=== PATIENT | female | born 1980 | race Hispanic/Latino ===

== ENCOUNTER 2017-08-29 13:12 | Inpatient (IN) | payer OTHER ==
[~2017-08-29] VITALS: Ht 160 cm; Wt 69.1 kg
[2017-08-29] MEDS ORDERED: HYDROMORPHONE 1MG/1ML INJ IV STA (13:27)
[2017-08-29] MEDS ORDERED: ONDANSETRON HCL INJ 2 MG/ML VIAL IV STA (13:27)
[2017-08-29] MEDS ORDERED: SODIUM CHLORIDE 0.9% 1000ML 1,000 ML IV STA (13:27)
[2017-08-29 14:06] LABS: BASOPHILS % 0.1 % (0.0-1.0); HEMOGLOBIN 9.8 g/dL (12.0-16.0); LYMPHOCYTES # (AUTO) 1.7 (1.0-3.2); LYMPHOCYTES % 7.9 % (18.0-39.1); MEAN CORPUSCULAR HEMOGLOBIN 22.4 pg (28-32); MEAN CORPUSCULAR HGB CONC 29.7 g/dL (31-35); MEAN CORPUSCULAR VOLUME 75.3 fL (81-99); MONOCYTES % 4.7 % (4.4-11.3); NEUTROPHILS # (AUTO) 18.9 (2.1-6.9); NEUTROPHILS % 86.7 % (38.7-80.0); PLATELET COUNT 579 x10e3/uL (140-360); RED BLOOD COUNT 4.38 x10e6/uL (3.6-5.1)
[2017-08-29 14:20] LABS: BILIRUBIN,URINE 1+ (NEGATIVE); CLARITY,URINE SL CLOUDY (CLEAR); COLOR,URINE YELLOW (YELLOW); KETONES,URINE NEGATIVE (NEGATIVE); LEUKOCYTE ESTERASE ,URINE 2+ (NEGATIVE); NITRITE,URINE NEGATIVE (NEGATIVE); PROTEIN,URINE DIPSTICK TRACE (NEGATIVE); URINE UROBILINOGEN 0.2 mg/dL (0.2 - 1)
[2017-08-29 14:23] LABS: PREGNANCY TEST, URINE NEGATIVE (NEGATIVE)
[2017-08-29 14:23] LABS: ALANINE AMINOTRANSFERASE 38 IU/L (0-55); ALBUMIN 4.2 g/dL (3.5-5.0); ALBUMIN/GLOBULIN RATIO 0.9 (0.8-2.0); ALKALINE PHOSPHATASE 76 IU/L (40-150); AMYLASE 50 U/L (25-125); ANION GAP 14.4 mmol/L (8-16); BLOOD UREA NITROGEN 13 mg/dL (7-26); BUN/CREATININE RATIO 16 (6-25); CALCIUM 8.9 mg/dL (8.4-10.2); CARBON DIOXIDE 22 mmol/L (22-29); CHLORIDE 103 mmol/L (98-107); CREATININE, SERUM 0.82 mg/dL (0.57-1.11); EST GLOMERULAR FILTRATION RATE > 60 ML/MIN (60-); GLUCOSE 144 mg/dL (74-118); LIPASE 21 U/L (8-78); MAGNESIUM 1.5 MG/DL (1.3-2.1); POTASSIUM 3.4 mmol/L (3.5-5.1); SODIUM 136 mmol/L (136-145)
[2017-08-29 14:44] LABS: BACTERIA,URINE MODERATE /HPF; EPITHELIAL CELLS,URINE MODERATE /LPF; RBC,URINE 0-5 /HPF (0-5)
--- NOTE | 2017-08-29 15:29 | Diagnostic Imaging Report ---
PROCEDURE:US GALLBLADDER COMPARISON:None. INDICATIONS:SEVERE ABDOMINAL PAIN TECHNIQUE: Pierre-scale and color doppler transverse and longitudinal images of the right upper quadrant of the abdomen were obtained. FINDINGS: Limited exam due to patient's severe pain Liver: 12.6 cm in right mid-clavicular line. Normal echogenicity. No masses. Main portal vein: 0.8 cm, hepatopedal flow Gallbladder: No stones, sludge, wall thickening, or pericholecystic fluid. Common Bile Duct: 0.3 cm Sonographic Burris's sign: Negative Right kidney: 8.3 cm. Normal echogenicity. No solid masses or hydronephrosis. Pancreas: The visualized portions are unremarkable. Inferior vena cava: Patent Aorta: Within normal limits Ascites: None in the right upper quadrant of the abdomen. Large septated anechoic structure noted in the lower midline pelvic area, measuring approximately 13.4 x 8.6 x 12.6 cm. CONCLUSION: 1. No sonographic evidence of cholelithiasis or cholecystitis. 2. Large septated anechoic structure in the lower midline pelvic area. Please refer to CT abdomen and pelvis performed same date for further detail. Raimundo Nova M.D. Dictated by: Raimundo Nova M.D. on 08/29/2017 at 15:38 Electronically approved by: Raimundo Nova M.D. on 08/29/2017 at 15:38
[2017-08-29] MEDS ORDERED: HYDROMORPHONE 2MG/ML INJ IV ONE ×2 (15:30→16:45)
--- NOTE | 2017-08-29 15:46 | Diagnostic Imaging Report ---
This report includes an Addendum and supersedes previous reports for this exam. PROCEDURE: CT ABDOMEN AND PELVIS WITH CONTRAST TECHNIQUE: The abdomen and pelvis were scanned utilizing a multidetector helical scanner from the diaphragm to the lesser trochanter after the IV administration of 100 cc of Isovue 370 and the oral administration of water. Coronal and sagittal multiplanar reformations were obtained. COMPARISON: None. INDICATIONS: RIGHT LOWER QUADRANT PAIN FINDINGS: LOWER THORAX: Bilateral lower lobe dependent atelectasis. HEPATOBILIARY: No focal hepatic lesions. No biliary ductal dilatation. Gallbladder is unremarkable. SPLEEN: No splenomegaly. PANCREAS: No focal masses or ductal dilatation. ADRENALS: No adrenal nodules. KIDNEYS/URETERS: No hydronephrosis, stones, or solid mass lesions. PELVIC ORGANS/BLADDER: Bladder is decompressed, but grossly unremarkable. There is an approximately 18.3 x 14.0 x 9.4 cm cystic lesion occupying the midline pelvis, with at least one septation and 2 locules (sagittal image 54 and series 2, image 58). No definite septation enhancement or mural nodules are identified. No fat component or calcification A normal left ovary is not identified. The right ovary is mildly prominent, measuring approximately 4.8 x 3.4 cm and contains a 1.9 x 2.3 cm fluid density structure, likely representing a dominant follicle or follicular cyst. PERITONEUM / RETROPERITONEUM: Small amount of fluid in the anterior peritoneum bilaterally (for example series 2, image 57), which does not measure simple fluid. A small amount of fluid tracks up into the right lower quadrant (for example, coronal image 37-41), surrounding loops of distal ileum and the appendix LYMPH NODES: No lymphadenopathy. VESSELS: Unremarkable. GI TRACT: No bowel dilation or evidence of obstruction. Appendix is identified (series 2, image 52) and is normal in caliber, without abnormal enhancement. BONES AND SOFT TISSUES: No aggressive lytic lesion. Soft tissues are grossly unremarkable. IMPRESSION: 1. Large cystic lesion with one septation and at least 2 locules in the pelvic midline, measuring 18.3 cm in greatest diameter. A normal left ovary is not identified. Findings highly suspicious for cystic ovarian neoplasm. No fat component or calcification to suggest a dermoid. Ruptured hemorrhagic cyst is a consideration given the small amount of fluid with slightly higher than simple attenuation in the pelvis. 2. Mildly prominent right ovary. Recommend transvaginal ultrasound with Doppler for further evaluation and to exclude torsion, given the clinical complaint of right lower quadrant pain. 3. No definite CT evidence of appendicitis. Raimundo Nova M.D. Dictated by: Raimundo Nova M.D. on 08/29/2017 at 15:55 Electronically approved by: Raimundo Nova M.D. on 08/29/2017 at 15:55 ADDENDUM: Moderate wall thickening involving multiple loops of jejunum (series 2, images 28-39), without intraluminal mass. A small amount of fluid is noted adjacent to jejunal loops in the left lower abdomen (series 2, image 37). No dilation or obstruction. The ileum is unremarkable. Findings suggestive of jejunal enteritis. Raimundo Nova M.D. Dictated by: Raimundo Nova M.D. on 08/29/2017 at 17:45 Electronically approved by: Raimundo Nova M.D. on 08/29/2017 at 17:45
--- NOTE | 2017-08-29 18:29 | Diagnostic Imaging Report ---
PROCEDURE:PELVIC DOPPLER US COMPARISON:[facility], CT, CT ABDOMEN/PELVIS W, 08/29/2017, 14:44. INDICATIONS:Abnormal Ovaries, Eval for Torsion CONCLUSION: Please refer to transvaginal ultrasound performed at the same date and time for full dictated report. Raimundo Nova M.D. Dictated by: Raimundo Nova M.D. on 08/29/2017 at 18:39 Electronically approved by: Raimundo Nova M.D. on 08/29/2017 at 18:39
--- NOTE | 2017-08-29 18:29 | Diagnostic Imaging Report ---
PROCEDURE:TRANSVAGINAL ULTRASOUND COMPARISON:[facility], CT, CT ABDOMEN/PELVIS W, 08/29/2017, 14:44. INDICATIONS:Abnormal Ovaries, Eval for Torsion TECHNIQUE: Grayscale transverse and sagittal transabdominal and transvaginal images were obtained of the pelvis. Transvaginal imaging was medically necessary to better evaluate endometrium.. FINDINGS: UTERUS: 10.5 x 4.7 x 4.3 cm. 1.8 x 1.5 x 2.0 cm subserosal fibroid in the fundus. Nabothian cysts in the cervix.. ENDOMETRIUM: 0.8 cm. Homogeneous echogenicity, without focal thickening. RIGHT OVARY: 4.4 x 2.5 x 3.4 cm. There is a 2.3 x 1.9 x 2.1 cm cystic, anechoic lesion in the right ovary, likely representing a dominant follicle. Normal arterial and venous flow is documented. LEFT OVARY: 6.2 x 2.6 x 4.1 cm. A 3.6 x 2.4 x 3.3 cm hypoechoic lesion is noted in the left ovary. Normal arterial and venous flow is documented. There is small amount of free fluid within the pelvis. 13.5 x 7.8 x 14.0 cm hypoechoic cystic structure in the midpelvis with at least 2 locules. No internal vascularity. CONCLUSION: 1. Although the left ovary is mildly increased in size, this is felt to be secondary to presence of a hypoechoic cystic lesion, which may represent a hemorrhagic cyst. Normal arterial and venous flow is documented, with low likelihood of torsion. 2. Normal arterial and venous flow is also seen in the right ovary, with low likelihood of torsion. A 2.3 cm cystic, anechoic lesion in the right ovary likely represents a dominant follicle. 3. Indeterminate 14.0 cm cystic structure with 2 locules occupying the midpelvis. A cystic ovarian neoplasm is still a consideration. 4. 2.8 cm subserosal fibroid in the uterus. Raimundo Nova M.D. Dictated by: Raimundo Nova M.D. on 08/29/2017 at 17:03 Electronically approved by: Raimundo Nova M.D. on 08/29/2017 at 18:38
[2017-08-29 18:33] LABS: BASOPHILS % 0.1 % (0.0-1.0); HEMATOCRIT 28.2 % (34.2-44.1); HEMOGLOBIN 8.6 g/dL (12.0-16.0); LYMPHOCYTES # (AUTO) 0.7 (1.0-3.2); LYMPHOCYTES % 2.6 % (18.0-39.1); MEAN CORPUSCULAR HEMOGLOBIN 22.9 pg (28-32); MEAN CORPUSCULAR HGB CONC 30.5 g/dL (31-35); MEAN CORPUSCULAR VOLUME 75.2 fL (81-99); MONOCYTES # (AUTO) 0.7 (0.2-0.8); MONOCYTES % 2.9 % (4.4-11.3); NEUTROPHILS # (AUTO) 23.3 (2.1-6.9); NEUTROPHILS % 93.7 % (38.7-80.0); PLATELET COUNT 446 x10e3/uL (140-360); RED BLOOD COUNT 3.75 x10e6/uL (3.6-5.1); RED CELL DISTRIBUTION WIDTH 16.8 % (11.7-14.4)
[2017-08-29] MEDS: SODIUM CHLORIDE 0.9% 1000ML 1,000 ML IV SCH (19:33)
[2017-08-29] MEDS: PIPER-TAZ 3.375 GM 50 ML IV SCH (19:33)
[2017-08-29] MEDS ORDERED: PIPER-TAZ 3.375 GM/50 ML BAG IV SCH (22:00)
[2017-08-29] MEDS: HYDROMORPHONE 2MG/ML INJ IV PRN (22:05)
--- OUTSIDE RECORDS SUMMARY | 2017-08-29 22:06 | XMS REPORT ---
Author [facility] Address Unknown Phone Unavailable Care Team Providers Care Hog Ribber Name Role Phone KYLE VACA Unavailable Unavailable Problems This patient has no known problems. Allergies, Adverse Reactions, Alerts This patient has no known allergies or adverse reactions. Medications This patient has no known medications. Results Test Description Test Time Test Comments Text Results Atomic Results Result Comments CT ABDOMEN/PELVIS W [place] [address] Patient Name: EM LANG MR #: [id number] : 1980 Age/Sex: 37/F Req #: [id number] Adm Physician: Ordered by: ADÁN RICHTER Report #: [id number] Location: ER Room/Bed: Procedure: [id number] CT/CT ABDOMEN/PELVIS W Exam Date: 08/29/17 Exam Time: 1448 REPORT STATUS: Signed This report includes an Addendum and supersedes previous reports for this exam. PROCEDURE: CT ABDOMEN AND PELVIS WITH CONTRAST TECHNIQUE: The abdomen and pelvis were scanned utilizing a multidetector helical scanner from the diaphragm to the lesser trochanter after the IV administration of 100 cc of Isovue 370 and the oral administration of water. Coronal and sagittal multiplanar reformations were obtained. COMPARISON: None. INDICATIONS: RIGHT LOWER QUADRANT PAIN FINDINGS: LOWER THORAX: Bilateral lower lobe dependent atelectasis. HEPATOBILIARY: No focal hepatic lesions. No biliary ductal dilatation. Gallbladder is unremarkable. SPLEEN: No splenomegaly. PANCREAS: No focal masses or ductal dilatation. ADRENALS: No adrenal nodules. KIDNEYS/URETERS: No hydronephrosis, stones , or solid mass lesions. PELVIC ORGANS/BLADDER: Bladder is decompressed, but grossly unremarkable. There is an approximately 18.3 x 14.0 x 9.4 cm cystic lesion occupying the midline pelvis, with at least one septation and 2 locules (sagittal image 54 and series 2, image 58). No definite septation enhancement or mural nodules are identified. No fat component or calcification A normal left ovary is not identified. The right ovary is mildly prominent, measuring approximately 4.8 x 3.4 cm and contains a 1.9 x 2.3 cm fluid density structure, likely representing a dominant follicle or follicular cyst. PERITONEUM / RETROPERITONEUM: Small amount of fluid in the anterior peritoneum bilaterally (for example series 2, image 57), which does not measure simple fluid. A small amount of fluid tracks up into the right lower quadrant (for example, coronal image 37-41), surrounding loops of distal ileum and the appendix LYMPH NODES: No lymphadenopathy. VESSELS : Unremarkable. GI TRACT: No bowel dilation or evidence of obstruction. Appendix is identified (series 2, image 52) and is normal in caliber, without abnormal enhancement. BONES AND SOFT TISSUES: No aggressive lytic lesion. Soft tissues are grossly unremarkable. IMPRESSION: 1. Large cystic lesion with one septation and at least 2 locules in the pelvic midline, measuring 18.3 cm in greatest diameter. A normal left ovary is not identified. Findings highly suspicious for cystic ovarian neoplasm. No fat component or calcification to suggest a dermoid. Ruptured hemorrhagic cyst is a consideration given the small amount of fluid with slightly higher than simple attenuation in the pelvis. 2. Mildly prominent right ovary. Recommend transvaginal ultrasound with Doppler for further evaluation and to exclude torsion, given the clinical complaint of right lower quadrant pain. 3. No definite CT evidence of appendicitis. Live Nova M.D. Dictated by: Live Nova M.D. on 08/29/2017 at 15:55 Electronically approved by: Live Nova M.D. on 08/29/2017 at 15 :55 ADDENDUM: Moderate wall thickening involving multiple loops of jejunum (series 2, images 28-39), without intraluminal mass. A small amount of fluid is noted adjacent to jejunal loops in the left lower abdomen (series 2, image 37). No dilation or obstruction. The ileum is unremarkable. Findings suggestive of jejunal enteritis. Live Nova M.D. Dictated by: Live Nova M.D. on 08/29/2017 at 17:45 Electronically approved by: Live Nova M.D. on 08/29/2017 at 17 :45 Dictated By: LIVE NOVA MD 44 Transcribed By: GUI on 08/29/171744 COPY TO: ADÁN RICHTER US GALLBLADDER [place] [address] Patient Name: EM LANG MR #: [id number] : 1980 Age/Sex: 37/F Req #: [id number] Adm Physician: Ordered by: ADÁN RICHTER Report #: [id number] Location: ER Room/Bed: Procedure: [id number] US/US GALLBLADDER Exam Date: Exam Time: REPORT STATUS: Signed PROCEDURE: US GALLBLADDER COMPARISON: None. INDICATIONS: SEVERE ABDOMINAL PAIN TECHNIQUE: Pierre-scale and color doppler transverse and longitudinal images of the right upper quadrant of the abdomen were obtained. FINDINGS: Limited exam due to patient's severe pain Liver: 12.6 cm in right mid-clavicular line. Normal echogenicity. No masses. Main portal vein: 0.8 cm, hepatopedal flow Gallbladder: No stones, sludge, wall thickening, or pericholecystic fluid. Common Bile Duct: 0.3 cm Sonographic Burris's sign: Negative Right kidney: 8.3 cm. Normal echogenicity. No solid masses or hydronephrosis. Pancreas: The visualized portions are unremarkable. Inferior vena cava: Patent Aorta: Within normal limits Ascites: None in the right upper quadrant of the abdomen. Large septated anechoic structure noted in the lower midline pelvic area, measuring approximately 13.4 x 8.6 x 12.6 cm. CONCLUSION: 1. No sonographic evidence of cholelithiasis or cholecystitis. 2. Large septated anechoic structure in the lower midline pelvic area. Please refer to CT abdomen and pelvis performed same date for further detail. Live Nova M.D. Dictated by: Live Nova M.D. on 08/29/2017 at 15:38 Electronically approved by: Live Nova M.D. on 2017 at 15:38 Dictated By: LIVE NOVA MD 1538 Transcribed By: GUI on 1538 COPY TO: ADÁN RICHTER US TRANSVAGINAL [place] [address] Patient Name: EM LANG MR #: [id number] : 1980 Age/Sex: 37/F Req #: [id number] Adm Physician: Ordered by: ADÁN RICHTER Report #: [id number] Location: ER Room/Bed: Procedure: [id number] US/US TRANSVAGINAL Exam Date: Exam Time: REPORT STATUS: Signed PROCEDURE: TRANSVAGINAL ULTRASOUND COMPARISON: [facility], CT, CT ABDOMEN/PELVIS W, 08/29/2017, 14:44. INDICATIONS: Abnormal Ovaries, Eval for Torsion TECHNIQUE: Grayscale transverse and sagittal transabdominal and transvaginal images were obtained of the pelvis. Transvaginal imaging was medically necessary to better evaluate endometrium.. FINDINGS: UTERUS: 10.5 x 4.7 x 4.3 cm. 1.8 x 1.5 x 2.0 cm subserosal fibroid in the fundus. Nabothian cysts in the cervix.. ENDOMETRIUM: 0.8 cm. Homogeneous echogenicity, without focal thickening. RIGHT OVARY: 4.4 x 2.5 x 3.4 cm. There is a 2.3 x 1.9 x 2.1 cm cystic, anechoic lesion in the right ovary, likely representing a dominant follicle. Normal arterial and venous flow is documented. LEFT OVARY: 6.2 x 2.6 x 4.1 cm. A 3.6 x 2.4 x 3.3 cm hypoechoic lesion is noted in the left ovary. Normal arterial and venous flow is documented. There is small amount of free fluid within the pelvis. 13.5 x 7.8 x 14.0 cm hypoechoic cystic structure in the midpelvis with at least 2 locules. No internal vascularity. CONCLUSION: 1. Although the left ovary is mildly increased in size, this is felt to be secondary to presence of a hypoechoic cystic lesion, which may represent a hemorrhagic cyst. Normal arterial and venous flow is documented, with low likelihood of torsion. 2. Normal arterial and venous flow is also seen in the right ovary, with low likelihood of torsion. A 2.3 cm cystic, anechoic lesion in the right ovary likely represents a dominant follicle. 3. Indeterminate 14.0 cm cystic structure with 2 locules occupying the midpelvis. A cystic ovarian neoplasm is still a consideration. 4. 2.8 cm subserosal fibroid in the uterus. Live Nova M.D. Dictated by: Live Nova M.D. on 08/29/2017 at 17:03 Electronically approved by: Live Nova M.D. on 2017 at 18:38 Dictated By: LIVE NOVA MD 1838 Transcribed By: INFCE on 1837 COPY TO: ADÁN RICHTER US PELVIC DOPPLER LTD [place] [address] Patient Name: EM LANG MR #: [id number] : 1980 Age/Sex: 37/F Req #: [id number] Adm Physician: Ordered by: ADÁN RICHTER Report #: [id number] Location: ER Room/Bed: Procedure: [id number] US/US PELVIC DOPPLER LTD Exam Date: Exam Time: REPORT STATUS: Signed PROCEDURE: PELVIC DOPPLER US COMPARISON: [facility], CT, CT ABDOMEN/PELVIS W, 2017, 14:44. INDICATIONS: Abnormal Ovaries, Eval for Torsion CONCLUSION: Please refer to transvaginal ultrasound performed at the same date and time for full dictated report. Live Nova M.D. Dictated by: Live Nova M.D. on 08/29/2017 at 18:39 Electronically approved by: Live Nova M.D. on 08/29/2017 at 18:39 Dictated By: LIVE NOVA MD 38 Transcribed By: GUI on 08/29/171838 COPY TO: ADÁN RICHTER
[2017-08-29 22:17] VITALS: BP 124/71
[2017-08-29] MEDS ORDERED: SODIUM CHLORIDE 0.9% 50ML 50 ML ONE (22:28)
[2017-08-29] MEDS ORDERED: IOPAMIDOL 370 MG/ML 200 ML INFUS..BTL INJ ONE (22:28)
[2017-08-29 22:55] VITALS: BP 124/71
[2017-08-30] VITALS (7 sets, daily range): BP systolic 95–117; BP diastolic 63–71
[2017-08-30] MEDS: PIPER-TAZ 3.375 GM 50 ML IV SCH ×3 (01:17→17:31)
[2017-08-30] MEDS: ONDANSETRON HCL INJ 2 MG/ML VIAL IV PRN ×4 (02:45→16:40)
[2017-08-30] MEDS: HYDROMORPHONE 2MG/ML INJ IV PRN ×4 (02:45→16:40)
[2017-08-30] MEDS: SODIUM CHLORIDE 0.9% 1000ML 1,000 ML IV SCH ×2 (02:46→18:35)
[2017-08-30 11:18] LABS: % IRON SATURATION 4 % (15-50); IRON 15 ug/dL (50-170); TOTAL IRON BINDING CAPACITY 340 ug/dL (261-478); TRANSFERRIN 243 mg/dL (180-382)
--- NOTE | 2017-08-30 11:21 | History and Physical ---
DATE OF : 1980 REASON FOR ADMISSION: This is a 37-year-old lady comes in with abdominal pain. HISTORY OF PRESENTING ILLNESS: Ms. Katie Pearson is a 37-year-old female with a history of ovarian cyst for the last 2 years. She is very much aware of it, but with no medical intervention. She did not do anything and last afternoon, the patient had abdominal pain which was unbearable, and the patient came into emergency room and was found to have elevated white count and an ovarian cyst also. PAST MEDICAL HISTORY: As mentioned, ovarian cyst, otherwise negative. PAST SURGICAL HISTORY: Noncontributory. REVIEW OF SYSTEMS: Negative for chest pain. Negative for shortness of breath. Positive for some nausea. No vomiting. No diarrhea. No constipation. No rectal bleeding. Positive for abdominal pain as mentioned above for the last 2 years off and on. FAMILY HISTORY: History of father with hypertension and thyroid condition. PHYSICAL EXAMINATION GENERAL: The patient is alert and oriented x3. VITAL SIGNS: Temperature is 100.0, when she came in, she was complaining of low-grade fevers, pulse of 117, respiratory rate of 21, blood pressure 124/71, and pulse ox 97% on room air. HEENT: Normocephalic and atraumatic. Pupils are reactive to light and accommodation. CVS: S1 and S2. Normal rate and rhythm. ABDOMEN: Very tense, tender especially in the lower quadrants bilaterally. EXTREMITIES: No clubbing. No cyanosis. No edema. IMAGING STUDIES: CT of the abdomen shows large cystic lesion with one septation, 18.3 cm in greatest diameter on the left ovary. Mildly prominent right ovary. No definite evidence of appendicitis. LABORATORY DATA: [place] [address] [place] [address], hemoglobin was 8.6 and 9.8, and hematocrit was 33 with an RDW of 17 and with left shift. Chemistries; sodium 136, potassium 3.2, glucose 144, and lactic acid was 7.4. Urine showed moderate amount of bacteria and epithelial cells and also positive for leukocyte esterase and nitrites negative and trace 2+ leukocyte esterase. ASSESSMENT 1. Urinary tract infection. 2. Ovarian cyst. 3. Leukocytosis. 4. Abdominal pain. She is on Zosyn right now. We will continue her on the Zosyn and pain control. We will consult Dr. Selina Spivey for ovarian cyst. We will check her white count and see trend. Microbiology, blood cultures, and urine culture pending at this time. Further recommendations depending on clinical course. We will start her on clear-liquid diet. Job#: [id number] SAK
[2017-08-30] MEDS ORDERED: VANCOMYCIN 1GM/NS 250 ML 250 ML IV ONE (21:00)
[2017-08-30] MEDS ORDERED: ACETAMINOPHEN 325 MG TAB PO PRN (21:00)
[2017-08-31] VITALS: BP_SYST 104; BP_SYST 114; BP_DIAS 70; BP_DIAS 75
[2017-08-31] MEDS: PIPER-TAZ 3.375 GM 50 ML IV SCH ×3 (02:13→17:38)
[2017-08-31] MEDS: ONDANSETRON HCL INJ 2 MG/ML VIAL IV PRN ×3 (02:23→22:54)
[2017-08-31] MEDS: HYDROMORPHONE 2MG/ML INJ IV PRN ×3 (02:23→22:54)
[2017-08-31] MEDS: SODIUM CHLORIDE 0.9% 1000ML 1,000 ML IV SCH ×3 (03:00→18:47)
[2017-08-31 04:00] VITALS: BP 114/70
[2017-08-31 06:59] LABS: BASOPHILS % 0.1 % (0.0-1.0); EOSINOPHILS # (AUTO) 0.1 (0.0-0.4); EOSINOPHILS % 0.9 % (0.0-6.0); HEMATOCRIT 25.8 % (34.2-44.1); LYMPHOCYTES # (AUTO) 0.7 (1.0-3.2); LYMPHOCYTES % 4.7 % (18.0-39.1); MEAN CORPUSCULAR HEMOGLOBIN 22.7 pg (28-32); MEAN CORPUSCULAR HGB CONC 30.2 g/dL (31-35); MEAN CORPUSCULAR VOLUME 75.2 fL (81-99); MONOCYTES # (AUTO) 0.6 (0.2-0.8); MONOCYTES % 3.9 % (4.4-11.3); NEUTROPHILS # (AUTO) 13.6 (2.1-6.9); NEUTROPHILS % 89.5 % (38.7-80.0); PLATELET COUNT 402 x10e3/uL (140-360); RED BLOOD COUNT 3.43 x10e6/uL (3.6-5.1); RED CELL DISTRIBUTION WIDTH 17.2 % (11.7-14.4)
[2017-08-31 07:05] LABS: HEMOGLOBIN 7.8 g/dL (12.0-16.0)
[2017-08-31] MEDS ORDERED: DIATRIZOATE MEGL/DIATRIZOA SOD 30 ML BTL PO ONE (07:31)
[2017-08-31 07:34] LABS: ALANINE AMINOTRANSFERASE 17 IU/L (0-55); ALBUMIN 2.4 g/dL (3.5-5.0); ALBUMIN/GLOBULIN RATIO 0.6 (0.8-2.0); ALKALINE PHOSPHATASE 54 IU/L (40-150); ANION GAP 9.1 mmol/L (8-16); BLOOD UREA NITROGEN 6 mg/dL (7-26); BUN/CREATININE RATIO 10 (6-25); CALCIUM 7.9 mg/dL (8.4-10.2); CARBON DIOXIDE 24 mmol/L (22-29); CHLORIDE 108 mmol/L (98-107); CREATININE, SERUM 0.61 mg/dL (0.57-1.11); EST GLOMERULAR FILTRATION RATE > 60 ML/MIN (60-); GLUCOSE 94 mg/dL (74-118); POTASSIUM 3.1 mmol/L (3.5-5.1); SODIUM 138 mmol/L (136-145)
[2017-08-31 08:00] VITALS: BP 112/67
[2017-08-31] MEDS ORDERED: IOPAMIDOL 370 MG/ML 200 ML INFUS..BTL INJ ONE (08:57)
[2017-08-31] MEDS ORDERED: SODIUM CHLORIDE 0.9% 50ML 50 ML ONE (08:57)
--- NOTE | 2017-08-31 09:45 | Diagnostic Imaging Report ---
EXAM: CT Abdomen and Pelvis WITH contrast INDICATION: Abdominal pain COMPARISON: CT abdomen and pelvis 08/29/2017 TECHNIQUE: Abdomen and pelvis were scanned utilizing a multidetector helical scanner from the lung base to the pubic symphysis after administration of contrast. Coronal and sagittal reformations were obtained. Protocol: General survey IV CONTRAST: 100 mL of Isovue 370 ORAL CONTRAST: Gastroview COMPLICATIONS: None RADIATION DOSE: Total Exam DLP: 410.7 mGy*cm. CTDIvol has been reviewed. It is below the limits set by the Radiation Protocol Committee (RPC). FINDINGS: LINES: None. Lower thorax: No parenchymal abnormality. No pneumothorax. Small bilateral pleural effusions with adjacent compression atelectasis. Liver: No focal mass. No hepatomegaly. Normal parenchyma. The hepatic and portal veins are patent. Gallbladder: No gallstones. No gallbladder distention. Biliary tree: No intrahepatic duct dilation. No extrahepatic duct dilation. Spleen: No splenomegaly. No focal mass. Pancreas: Normal parenchymal enhancement. No focal mass. Normal pancreatic duct. No peripancreatic inflammatory changes. Kidneys: No obstructing calculi. Moderate left hydroureter and minimal left hydronephrosis secondary to extrinsic compression of the distal left ureter at the level of the pelvic inlet. No solid enhancing mass. No cysts. No perinephric soft tissue inflammatory changes. Adrenal glands: No adrenal nodules.. Bladder: Normal urinary bladder. Pelvic organs: 14.9 x 13.0 x 18.1 cm multiloculated mass is present in the pelvis, likely originating from the right adnexa. The uterus and left ovary are normal. GI: No bowel wall thickening. No air-fluid levels. The stomach and small bowel are normal. The colon is normal. No appendix is visualized. A moderate amount of retained feces limits intraluminal evaluation of the colon. Peritoneum/retroperitoneum: No pneumoperitoneum. Interval development of minimal ascites. No drainable fluid collection. Lymph nodes: No lymphadenopathy. . Vessels: The abdominal aorta and iliac vessels are patent. The celiac, superior mesenteric, and inferior mesenteric arteries are patent. Single bilateral renal arteries are patent. . Bones: No focal abnormality. . Soft tissues: No focal abnormality. IMPRESSION: Multiloculated cystic mass in the lower pelvis, likely ovarian in origin, is concerning for malignancy. Interval development of left hydroureter and left hydronephrosis secondary to mass effect on the distal left ureter. Interval development of minimal ascites. Small bilateral pleural effusions. Signed by: Dr. Zurdo Galo M.D. on 08/31/2017 9:41 AM
[2017-08-31 12:00] VITALS: BP 119/66
[2017-08-31] MEDS ORDERED: FUROSEMIDE INJ 10 MG/ML 2 ML VIAL IV PRN (12:15)
[2017-08-31] MEDS ORDERED: SODIUM CHLORIDE 0.9% 250ML 250 ML IV ONE (12:30)
[2017-08-31 16:00] VITALS: BP 108/60
[2017-08-31] MEDS ORDERED: PEG (High)/E-LYTE SOLN 4,000 ML BTL PO ONE (17:30)
[2017-08-31 20:00] VITALS: BP 124/61
[2017-09-01] VITALS: BP 138/66
[2017-09-01] MEDS: SODIUM CHLORIDE 0.9% 1000ML 1,000 ML IV SCH ×3 (02:35→18:02)
[2017-09-01] MEDS: PIPER-TAZ 3.375 GM 50 ML IV SCH ×3 (03:15→18:51)
[2017-09-01 04:00] VITALS: BP 116/71
--- NOTE | 2017-09-01 04:40 | Consultation ---
DATE OF CONSULTATION: Thank you very much for asking me to see this 37-year-old 0 with last menstrual period 2 weeks ago who came in through the emergency room complaining of abdominal pressure-like pain that started 2 days ago at night and gradually got worse. The pain is mainly in the lower abdomen, gets worse with moving and improves when lying still. Her periods are usually 28 days, lasting for 3 to 5 days with clots. No recent history of loss of significant weight. She is not on control; however, she said that she is sexually active but not looking to get in the future. PAST MEDICAL HISTORY: Not significant. PAST SURGICAL HISTORY: Not significant. DRUG ALLERGIES: NONE KNOWN. MEDICATIONS: She is on Tylenol. SOCIAL: Denies smoking, alcohol or drug abuse. REVIEW OF SYSTEMS: She denies any cardiovascular, respiratory, or gastrointestinal problem. No dermatological, hematological, musculoskeletal, or psychiatric problem. She mentioned that she has observed no flank pain . PHYSICAL EXAMINATION VITAL SIGNS: Stable. CHEST: Clear to auscultation. CARDIOVASCULAR: Regular rate and rhythm. ABDOMEN: Soft. Tender in the lower abdomen with large pelviabdominal mass. ASSESSMENT AND PLAN: A 37-year-old with large pelviabdominal mass observed on ultrasound and computerized tomography scan. We will proceed with laparotomy and excision of the mass. However, I mentioned to the patient that the tumor on frozen section if it is borderline or cancer, she will need to probably have total abdominal hysterectomy, bilateral salpingo-oophorectomy. Patient understands that fully and all her options were explained, and she said that she is not planning to have pregnancies . Once again, thank you very much for asking me to see this patient. I will ask Dr. Iglesias to place stents during the procedure to protect the ureters due to the close proximity of the ovary and left ureter. Also, I will do a bowel prep on her, and we booked her surgery tomorrow morning. Job#: [id number] CF cc:PIETRO MENENDEZ MD
[2017-09-01] MEDS: HYDROMORPHONE 2MG/ML INJ IV PRN ×2 (05:57→21:16)
[2017-09-01] MEDS: ONDANSETRON HCL INJ 2 MG/ML VIAL IV PRN (05:57)
[2017-09-01 08:00] VITALS: BP 117/58
[2017-09-01 12:00] VITALS: BP 115/53
[2017-09-01] MEDS ORDERED: IOPAMIDOL 610MG/1ML 300 MG/ML VIAL IV ONE (12:53)
[2017-09-01] MEDS ORDERED: PROMETHAZINE HCL (IM) 25 MG/ML VIAL IV PRN (16:00)
[2017-09-01] MEDS ORDERED: KETOROLAC TROMETHAMINE 30 MG/ML VIAL IM PRN (16:00)
[2017-09-01] MEDS ORDERED: ACETAMINOPHEN 325 MG TAB PO PRN (16:00)
[2017-09-01] MEDS ORDERED: ONDANSETRON HCL INJ 2 MG/ML VIAL IV PRN (16:00)
[2017-09-01] MEDS ORDERED: DIPHENHYDRAMINE HCL 25 MG CAP PO PRN (16:00)
[2017-09-01] MEDS ORDERED: ZOLPIDEM TARTRATE 5 MG TAB PO PRN (16:00)
[2017-09-01] MEDS ORDERED: BISACODYL 5 MG TAB EC PO PRN (16:00)
[2017-09-01] MEDS ORDERED: PROMETHAZINE 12.5MG/ NACL 0.9% 50 ML IV PRN (16:15)
[2017-09-01] MEDS ORDERED: FENTANYL CITRATE/PF 100MCG/2 ML INJ ONE ×2 (16:24→18:37)
--- NOTE | 2017-09-01 17:12 | Operative Report ---
DATE OF PROCEDURE: PREOPERATIVE DIAGNOSES 1. Large adnexal mass. 2. Hydroureter. 3. Hydronephrosis. POSTOPERATIVE DIAGNOSES 1. Large adnexal mass. 2. Hydroureter. 3. Hydronephrosis. PROCEDURE: Laparotomy, left salpingo-oophorectomy, staging ovarian cancer. CHIEF ANALYTICS OFFICER: Braulio. COMPLICATIONS: None. ESTIMATED BLOOD LOSS: 100 mL. DESCRIPTION OF PROCEDURE: The patient was taken to the OR. Under general anesthesia, the patient was prepped and draped in the normal sterile fashion. She was placed in the dorsal lithotomy position. A midline subumbilical skin incision was made with a scalpel and taken all the way down to the fascia, which was nicked and reflected until the midline was identified. After being tented with hemostats and entered sharply with Metzenbaum scissors, the incision was extended vertically using curved Spears scissors. A weighted speculum was placed inside the pelvis and suction and irrigation of the peritoneal cavity with warm saline and suctioned. The washing was sent to pathology. Large multilocular left adnexal mass, about 15 cm, was extracted outside the wound, covered with moist laps. Chocolate material started to leak outside from the ovarian cyst. Two Zeppelin clamps were applied, one applied at the infundibulopelvic ligament and the other one was at the junction of the ovarian mass and the cornua of the uterus on the left side. Using the scissors, the mass was excised and sent to pathology for frozen section. Ligation of the pedicle was secured with transfixion suture of Vicryl 0. Hemostasis was found to be adequate. Suction and irritation of the peritoneal cavity several times. The liver surface as well as the undersurface of the diaphragm were both normal. Omentum looked normal. However, dark flakes of hemosiderin were noted. The abdominal and pelvic lymph nodes were normal. The right ovary and tube looked normal. Frozen section results came back to be benign. The rectus fascia was approximated using PDS 0 continuous stitch. Two sutures were used. The subcutaneous was approximated with plain catgut 2-0. The skin was closed with newton. Patient tolerated the procedure well. Lap, instrument and needle count was correct x2 at the end of the procedure. Job#: [id number]
[2017-09-01] MEDS ORDERED: ONDANSETRON HCL INJ 2 MG/ML VIAL ONE (18:16)
[2017-09-01] MEDS ORDERED: PROPOFOL IV EMULSION 10 MG/ML 20 ML VIAL ONE (18:16)
[2017-09-01] MEDS ORDERED: ROCURONIUM BROMIDE 10 MG/ML 5ML VIAL ONE (18:16)
[2017-09-01] MEDS ORDERED: SEVOFLURANE INHAL SOLN 250 ML PEN BTL ONE (18:16)
[2017-09-01] MEDS ORDERED: ACETAMINOPHEN 1000 MG/100 ML IV ONE (18:16)
[2017-09-01] MEDS ORDERED: LIDOCAINE HCL 2% LOCAL INJ 5 ML SDV VIAL INJ ONE (18:16)
[2017-09-01] MEDS ORDERED: DEXAMETHASONE SOD PHOS INJ 4 MG/ML VIAL ONE (18:16)
[2017-09-01] MEDS ORDERED: PHENYLEPHRINE HCL 1% 10 MG/ML VIAL ONE (18:16)
[2017-09-01] MEDS ORDERED: MIDAZOLAM HCL 2 MG/2 ML VIAL ONE (18:37)
[2017-09-01 18:46] LABS: HEMATOCRIT 25.5 % (34.2-44.1)
[2017-09-01 19:00] LABS: HEMOGLOBIN 7.5 g/dL (12.0-16.0)
[2017-09-01] MEDS ORDERED: SODIUM CHLORIDE 0.9% 250ML 250 ML IV ONE (19:45)
[2017-09-01 20:00] VITALS: BP 127/83
[2017-09-01] MEDS ORDERED: SODIUM CHLORIDE 0.9% 250ML 250 ML ONE (22:26)
[2017-09-01 23:35] VITALS: BP 127/83
[2017-09-01] MEDS: HYDROCODONE/APAP 10MG-325MG TAB PO PRN (23:55)
[2017-09-02] VITALS (9 sets, daily range): BP systolic 107–135; BP diastolic 58–82
[2017-09-02] MEDS: SODIUM CHLORIDE 0.9% 1000ML 1,000 ML IV SCH ×2 (01:05→11:09)
[2017-09-02] MEDS: LACTATED RINGER'S 1,000 ML IV SCH (01:23)
[2017-09-02] MEDS: PIPER-TAZ 3.375 GM 50 ML IV SCH ×3 (01:31→17:12)
[2017-09-02] MEDS: HYDROMORPHONE 2MG/ML INJ IV PRN ×4 (01:31→21:14)
[2017-09-02] MEDS: HYDROCODONE/APAP 10MG-325MG TAB PO PRN (06:03)
[2017-09-02 06:50] LABS: BASOPHILS % 0.1 % (0.0-1.0); EOSINOPHILS % 0.1 % (0.0-6.0); HEMATOCRIT 28.5 % (34.2-44.1); HEMOGLOBIN 8.8 g/dL (12.0-16.0); LYMPHOCYTES # (AUTO) 1.2 (1.0-3.2); LYMPHOCYTES % 10.7 % (18.0-39.1); MEAN CORPUSCULAR HEMOGLOBIN 23.7 pg (28-32); MEAN CORPUSCULAR HGB CONC 30.9 g/dL (31-35); MEAN CORPUSCULAR VOLUME 76.6 fL (81-99); MONOCYTES % 9.2 % (4.4-11.3); NEUTROPHILS # (AUTO) 8.8 (2.1-6.9); NEUTROPHILS % 79.3 % (38.7-80.0); PLATELET COUNT 443 x10e3/uL (140-360); RED BLOOD COUNT 3.72 x10e6/uL (3.6-5.1); RED CELL DISTRIBUTION WIDTH 17.8 % (11.7-14.4)
[2017-09-02] MEDS: ONDANSETRON HCL INJ 2 MG/ML VIAL IV PRN (08:06)
[2017-09-03] VITALS: BP 108/55
[2017-09-03] MEDS: HYDROMORPHONE 2MG/ML INJ IV PRN ×2 (01:30→07:30)
[2017-09-03] MEDS: PIPER-TAZ 3.375 GM 50 ML IV SCH ×3 (02:03→17:06)
[2017-09-03 04:00] VITALS: BP 120/57
[2017-09-03 07:19] LABS: BASOPHILS % 0.3 % (0.0-1.0); EOSINOPHILS # (AUTO) 0.3 (0.0-0.4); EOSINOPHILS % 3.1 % (0.0-6.0); HEMATOCRIT 28.6 % (34.2-44.1); HEMOGLOBIN 8.6 g/dL (12.0-16.0); LYMPHOCYTES # (AUTO) 2.1 (1.0-3.2); LYMPHOCYTES % 20.5 % (18.0-39.1); MEAN CORPUSCULAR HEMOGLOBIN 23.1 pg (28-32); MEAN CORPUSCULAR HGB CONC 30.1 g/dL (31-35); MEAN CORPUSCULAR VOLUME 76.9 fL (81-99); MONOCYTES # (AUTO) 1.3 (0.2-0.8); MONOCYTES % 13.1 % (4.4-11.3); NEUTROPHILS # (AUTO) 6.3 (2.1-6.9); NEUTROPHILS % 62.3 % (38.7-80.0); PLATELET COUNT 438 x10e3/uL (140-360); RED BLOOD COUNT 3.72 x10e6/uL (3.6-5.1); RED CELL DISTRIBUTION WIDTH 17.8 % (11.7-14.4)
[2017-09-03 07:37] LABS: ANION GAP 13.2 mmol/L (8-16); BLOOD UREA NITROGEN < 5 mg/dL (7-26); CALCIUM 8.3 mg/dL (8.4-10.2); CARBON DIOXIDE 27 mmol/L (22-29); CHLORIDE 102 mmol/L (98-107); CREATININE, SERUM 0.58 mg/dL (0.57-1.11); EST GLOMERULAR FILTRATION RATE > 60 ML/MIN (60-); GLUCOSE 88 mg/dL (74-118); POTASSIUM 3.2 mmol/L (3.5-5.1); SODIUM 139 mmol/L (136-145)
[2017-09-03 07:38] LABS: BUN/CREATININE RATIO 9 (6-25)
[2017-09-03] MEDS: LACTATED RINGER'S 1,000 ML IV SCH (07:47)
[2017-09-03] MEDS: HYDROCODONE/APAP 10MG-325MG TAB PO PRN ×3 (11:20→20:30)
[2017-09-03 13:09] VITALS: BP 122/72
[2017-09-03 16:20] VITALS: BP 103/69
[2017-09-03] MEDS ORDERED: HYDROMORPHONE 2MG/ML INJ IV PRN (20:30)
[2017-09-03 22:18] VITALS: BP_SYST 114; BP_SYST 118; BP_DIAS 67; BP_DIAS 70
[2017-09-04 01:52] VITALS: BP 111/56
[2017-09-04] MEDS: PIPER-TAZ 3.375 GM 50 ML IV SCH (02:12)
[2017-09-04] MEDS: HYDROCODONE/APAP 10MG-325MG TAB PO PRN (05:15)
[2017-09-04 05:42] VITALS: BP 121/67
[2017-09-04] MEDS ORDERED: TYLENOL WITH C1 EACH PO (08:51)
[2017-09-04 09:06] VITALS: BP 118/56
[2017-09-04] MEDS ORDERED: BISACODYL 10 MG SUPP PR ONE (09:30)
== END 2017-09-04 10:50 | disposition home or self-care (01) | DRG 742 ==
LOC: ER 13:12 → MED/SURG3 22:03
PROVIDERS: ADMIT Family Medicine; ATTEND Family Medicine
PROC: 30233N1 Transfusion of Nonautologous Red Blood Cells into Peripheral Vein, Percutaneous Approach (ICD-10-PCS; 2017-09-01)
PROC: 0UT60ZZ Resection of Left Fallopian Tube, Open Approach (ICD-10-PCS; principal; 2017-09-01 13:00)
PROC: 0UT10ZZ Resection of Left Ovary, Open Approach (ICD-10-PCS; 2017-09-01 13:00)
DX: D27.1 Benign neoplasm of left ovary (principal); N39.0 Urinary tract infection, site not specified; N13.30 Unspecified hydronephrosis; D62 Acute posthemorrhagic anemia; N13.4 Hydroureter; K52.9 Noninfective gastroenteritis and colitis, unspecified
CPT/HCPCS: 36415; 36430; 74177; 74420; 76705; 76830; 80048; 80053; 81001; 81025; 82150; 83540; 83605; 83690; 83735; 84466; 84702; 85014; 85018; 85025; 86304; 86850; 86900; 86920; 87040; 87071; 87086; 87205; 88112; 88304; 88307; 88331; 88342; 93976; 96361; 99284; C2617; J1100; J1940; J2001; J2250; J2370; J2405; J2543; J3370; J7030; J7050; J7120; P9016; Q9967

== ENCOUNTER → 2017-10-03 | Outpatient (CLI) | payer OTHER ==
[~2017-10-03] MED LIST: FUROSEMIDE INJ 10 MG/ML 4 ML VIAL ONE; TYLENOL WITH C1 EACH PO
--- NOTE | 2017-10-03 22:24 | Diagnostic Imaging Report ---
Renal Scan with Lasix Washout Clinical information: 37 F s/p left oophorectomy one month ago. Left ureteral stent was placed but removed two days ago. Technique: Following intravenous administration of 9.8 mCi of Tc-99m MAG3, dynamic images of the kidneys in the posterior projection were obtained through 40 minutes. Lasix 40 mg was administered intravenously at 10 minutes post injection of the tracer. Report: Left kidney: Perfusion of the left kidney is prompt. The kidney has a normal reniform shape. Extraction of tracer from the blood pool is normal. Clearance of tracer from the renal parenchyma is prompt. The pelvicalyceal system is not dilated. No increased pooling of tracer is seen in the pelvicalyceal system. Drainage of tracer from the pelvicalyceal system is prompt and adequate prior to administration of Lasix. No significant stasis of tracer is seen within the left ureter. Right kidney: Perfusion to the right kidney is prompt. The right kidney has a normal reniform shape. Extraction of tracer by the renal parenchyma is normal. Clearance of tracer from the renal parenchyma is prompt. The pelvicalyceal system is not dilated. No increased pooling of tracer within the pelvicalyceal system is seen. Drainage of tracer from the pelvicalyceal system is prompt and adequate prior to administration of Lasix. No significant stasis of tracer is seen within the right ureter. Differential renal function: The left kidney contributes 50% of total renal function and the right kidney contributes 50% (normal 43-57%). Impression: 1. The function of the left kidney is generally normal. No hydronephrosis is present. No physiologically significant obstruction of the renal collecting system is present. 2. The function of the right kidney is generally normal. No hydronephrosis is present. No physiologically significant obstruction of the renal collecting system is present. 3. The differential renal function is preserved. Signed by: Dr. Fozia Du M.D. on 10/03/2017 10:20 PM
== END ==
LOC: NM 13:46
PROVIDERS: ATTEND Urology
DX: T19.1XXA Foreign body in bladder, initial encounter (principal); R31.21 Asymptomatic microscopic hematuria; N13.30 Unspecified hydronephrosis
CPT/HCPCS: 78708; 81025; A9562; J1940